=== PATIENT | female | born 1975 | race Two or more races ===

== ENCOUNTER 2020-06-28 15:20 | Outpatient (REF) | payer MEDICAID, SELFPAY ==
--- NOTE | ~2020-06-28 | US_ITS ---
EXAMINATION: US PELVIS ULTRASOUND CLINICAL INFORMATION: Excessive and frequent menses. Age 45. LMP 05/30/2020. COMPARISON: None TECHNIQUE: Ultrasound of the pelvis is performed using both transabdominal and transvaginal transducers along with Doppler. Transvaginal imaging is performed due to inadequate visualization transabdominally. FINDINGS: Uterus: The uterus is anteverted and retroflexed and measures 8.9 x 4.3 x 6.8 cm. Volume 136 mL. The double wall endometrial thickness is borderline thickened at 16 mm. The endometrium appears homogeneous. There is no visible mass. No abnormal color flow. The uterus is smooth in contour and has normal myometrial echogenicity. No visible fibroid. There is a 6 mm nabothian cyst in the cervix. Adnexa: Both ovaries are visualized. There is normal color flow to the adnexa. There is no ovarian torsion. There is no pelvic ascites or fluid collection. Right ovary measures 3.9 x 1.7 x 2.2 cm. Volume 7.3 mL. Left ovary measures 4.3 x 1.5 x 2.2 cm. Volume 7.4 mL. US/US pelvic complete IMPRESSION: 1. Endometrial double wall thickness 1.6 cm. 2. No visible fibroid. No adnexal mass or ascites.
--- NOTE | ~2020-06-28 | US_ITS ---
EXAMINATION: US PELVIS ULTRASOUND CLINICAL INFORMATION: Excessive and frequent menses. Age 45. LMP 05/30/2020. COMPARISON: None TECHNIQUE: Ultrasound of the pelvis is performed using both transabdominal and transvaginal transducers along with Doppler. Transvaginal imaging is performed due to inadequate visualization transabdominally. FINDINGS: Uterus: The uterus is anteverted and retroflexed and measures 8.9 x 4.3 x 6.8 cm. Volume 136 mL. The double wall endometrial thickness is borderline thickened at 16 mm. The endometrium appears homogeneous. There is no visible mass. No abnormal color flow. The uterus is smooth in contour and has normal myometrial echogenicity. No visible fibroid. There is a 6 mm nabothian cyst in the cervix. Adnexa: Both ovaries are visualized. There is normal color flow to the adnexa. There is no ovarian torsion. There is no pelvic ascites or fluid collection. Right ovary measures 3.9 x 1.7 x 2.2 cm. Volume 7.3 mL. Left ovary measures 4.3 x 1.5 x 2.2 cm. Volume 7.4 mL. US/US transvaginal IMPRESSION: 1. Endometrial double wall thickness 1.6 cm. 2. No visible fibroid. No adnexal mass or ascites.
== END 2020-06-28 15:21 | disposition home or self-care (01) ==
LOC: HO.US 15:20
PROVIDERS: PCP Internal Medicine; Visit Provider Advanced Practice Midwife
DX: N92.0 Excessive and frequent menstruation with regular cycle (principal)
CPT/HCPCS: 76830; 76856

== ENCOUNTER 2020-07-05 13:01 | Outpatient (REF) | payer MEDICAID, SELFPAY ==
[2020-07-06 10:18] LABS: BV Int Neg Control Negative (Negative); BV Int Pos Control Positive (Positive)
[2020-07-06 15:36] LABS: C. trachomatis RNA TMA NOT DETECTED (NOT DETECTED); N. gonorrhoeae RNA TMA NOT DETECTED (NOT DETECTED)
== END 2020-07-05 13:02 | disposition home or self-care (01) ==
LOC: HO.LAB 13:01
PROVIDERS: PCP Internal Medicine; Visit Provider Obstetrics & Gynecology
DX: B37.3 Candidiasis of vulva and vagina (principal)
CPT/HCPCS: 36415; 87480; 87491; 87510; 87591; 87660; 99212

== ENCOUNTER 2021-10-02 10:17 | Outpatient (REF) | payer MEDICAID, SELFPAY ==
[2021-10-02 12:39] LABS: Alanine Aminotransferase 14 U/L (0-31); Albumin Level 4.2 g/dL (3.5-5.0); Alkaline Phosphatase 66 U/L (39-117); Aspartate Amino Transferase 14 U/L (5-31); Bilirubin Direct < 0.2 mg/dL (0.0-0.5); Bilirubin Total 0.4 mg/dL (0.0-1.0); Total Protein 7.5 g/dL (6.5-8.0)
[2021-10-02 13:02] LABS: TSH reflex Free T4 0.94 uIU/mL (0.32-4.0)
[2021-10-02 13:30] LABS: Folate 11.3 ng/mL (> or = 4.0); Vitamin B12 284 pg/mL (200-900)
[2021-10-03 21:21] LABS: Transglutaminase Ab IgG <1.0 U/mL; Transglutaminase IgA <1.0 U/mL
[2021-10-06 12:41] LABS: Vitamin D 25-OH, D2 10 ng/mL; Vitamin D 25-OH, D3 20 ng/mL; Vitamin D 25-OH, Total 30 ng/mL (30-100)
== END 2021-10-02 10:18 | disposition home or self-care (01) ==
LOC: HO.LAB 10:17
PROVIDERS: PCP Internal Medicine; Referring Provider Internal Medicine; Visit Provider Nurse Practitioner Family
DX: R10.9 Unspecified abdominal pain (principal); R19.7 Diarrhea, unspecified; K21.9 Gastro-esophageal reflux disease without esophagitis; K59.04 Chronic idiopathic constipation; R14.0 Abdominal distension (gaseous); E55.9 Vitamin D deficiency, unspecified
CPT/HCPCS: 36415; 80076; 82306; 82607; 82746; 84443; 86364; 99202; 99212

== ENCOUNTER 2021-11-19 11:27 | Outpatient (REF) | payer MEDICAID, SELFPAY | END 2021-11-19 11:28 | disposition home or self-care (01) | LOC: HO.LNP 11:27 | PROVIDERS: Visit Provider Nurse Practitioner Family | DX: K21.9 Gastro-esophageal reflux disease without esophagitis (principal); Z20.822 Contact with and (suspected) exposure to COVID-19 | CPT/HCPCS: 87338 ==

== ENCOUNTER → 2021-11-20 11:31 | Outpatient (BNVA) | payer MEDICAID, SELFPAY | PROVIDERS: PCP Internal Medicine; Visit Provider Nurse Practitioner Family | DX: K59.01 Slow transit constipation (principal); K21.9 Gastro-esophageal reflux disease without esophagitis; R14.0 Abdominal distension (gaseous) | CPT/HCPCS: 99212 ==

== ENCOUNTER 2022-04-03 13:19 | Outpatient (REF) | payer MEDICAID, SELFPAY ==
--- NOTE | ~2022-04-03 | MM_ITS ---
EXAMINATION: MM SCREENING DIGITAL BREAST TOMOSYNTHESIS, BILATERAL CLINICAL INFORMATION: Screening. Asymptomatic. Age 47. Prior mammography at unknown location. Family history breast cancer, sister. The lifetime risk of breast cancer based on the Tyrer-Cuzick Model is 18%. COMPARISON: None (current study represents new baseline exam). TECHNIQUE: Digital breast tomosynthesis is performed in both the craniocaudal and mediolateral oblique views along with computer-aided detection (CAD). Synthesized 2D images are generated from the tomosynthesis. FINDINGS: There are scattered areas of fibroglandular density (ACR BI-RADS breast composition Category b). There is no architectural abnormality or abnormal calcifications. The bilateral axilla and skin contours are unremarkable. Right breast has small intramammary node posterior upper outer quadrant. Left breast has benign-appearing smooth bilobed nodule with partly obscured margins mid 3:00 position measuring approximately 1.3 x 0.5 x 0.7. As this represents new baseline exam, patient will be recalled for additional imaging to fully characterize. MM/MM tomosynthesis screening BI IMPRESSION: Left: -Smooth bilobed nodule mid 3:00 approximately 1.3 x 0.5 x 0.7 cm, possibly a cyst. Right: -No mammographic evidence of malignancy. ASSESSMENT: BI-RADS 0: Incomplete - Need Additional Imaging Evaluation RECOMMENDATION: 1. Targeted ultrasound left breast. 2. Radiology department staff will contact the patient for additional imaging. This patient's information was entered into a reminder system with a target due date for their next mammogram.
== END 2022-04-03 13:20 | disposition home or self-care (01) ==
LOC: HO.MAMMO 13:19
PROVIDERS: PCP Internal Medicine; Visit Provider Internal Medicine
DX: Z12.31 Encounter for screening mammogram for malignant neoplasm of breast (principal)
CPT/HCPCS: 77063; 77067

== ENCOUNTER 2022-04-10 13:43 | Outpatient (REF) | payer MEDICAID, SELFPAY ==
--- NOTE | ~2022-04-10 | US_ITS ---
EXAMINATION: US DIAGNOSTIC ULTRASOUND BREAST, LEFT CLINICAL INFORMATION: Recall from new baseline screening for lobulated nodule mid 3:00 position approximately 1.3 cm in greatest dimension, possibly a cyst. TC score 18%. Family history breast cancer, sister. COMPARISON: New baseline mammography 04/03/2022. TECHNIQUE: Ultrasound left breast is targeted to the outer breast using grayscale imaging and color Doppler without and with harmonics. FINDINGS: There is a grouping of simple cysts 3:30, 7 cm from nipple, with overall dimensions approximately 1.3 x 0.6 x 0.8 cm. There is increased through-transmission of sound. No associated color flow. No solid mass or architectural abnormality. Finding corresponds to the area for recall on recent new baseline screening. Results are discussed with the patient at time of visit, using an spanish medical interpreter. US/US breast LT limited IMPRESSION: -Grouped simple cysts mid outer left breast corresponding to recent mammography. ASSESSMENT: BI-RADS 2: Benign RECOMMENDATION: Routine annual mammography screening. This patient's information was entered into a reminder system with a target due date for their next mammogram.
== END 2022-04-10 13:44 | disposition home or self-care (01) ==
LOC: HO.MAMMO 13:43
PROVIDERS: PCP Internal Medicine; Visit Provider Internal Medicine
DX: N63.25 Unspecified lump in the left breast, overlapping quadrants (principal)
CPT/HCPCS: 76642

== ENCOUNTER 2022-12-09 10:50 | Outpatient (REF) | payer MEDICAID, SELFPAY ==
[2022-12-09 13:39] LABS: MANUAL DIFF FLAG NO
[2022-12-09 14:02] LABS: Basophils Percent Auto 0.6 % (0-2); Eosinophils Absolute Auto 0.1 X10*3/uL (0.0-0.4); Eosinophils Percent Auto 1.8 % (0-4); Hematocrit 36.6 % (37.0-47.0); Hemoglobin 11.1 g/dl (12.0-16.0); Lymphocytes Absolute Auto 1.3 X10*3/uL (1.2-4.9); Lymphocytes Percent Auto 26.4 % (20-40); Mean Corpuscular HGB Conc 30.3 g/dl (31.0-35.0); Mean Corpuscular Hemoglobin 24.7 pg (27.0-33.0); Mean Corpuscular Volume 81.5 fL (80.0-98.0); Mean Platelet Volume 12.6 fL (9.4-12.3); Monocytes Absolute Auto 0.4 X10*3/uL (0.1-1.2); Monocytes Percent Auto 7.4 % (2-11); Neutrophils Absolute Auto 3.2 x10*3/uL (2.0-8.3); Neutrophils Percent Auto 63.8 % (45-73); Platelet Count 310 X10*3/uL (160-400); Red Blood Count 4.49 X10*6/uL (4.20-5.50); Red Cell Distribution Width 15.7 % (11.0-16.0)
[2022-12-09 15:16] LABS: Alanine Aminotransferase 18 U/L (0-31); Albumin Level 4.4 g/dL (3.5-5.0); Alkaline Phosphatase 62 U/L (39-117); Anion Gap 11 (12-20); Aspartate Amino Transferase 19 U/L (5-31); Bilirubin Direct 0.2 mg/dL (0.0-0.5); Bilirubin Total 0.4 mg/dL (0.0-1.0); Blood Urea Nitrogen 11 mg/dL (9-16); Calcium 9.7 mg/dL (8.4-10.2); Carbon Dioxide 27 mmol/L (22-29); Chloride 104 mmol/L (96-108); Cholesterol 154 mg/dL; Estimated Glomerular Filt Rate > 60; Glucose Random 85 mg/dL (60-115); HDL Cholesterol 40 mg/dL; LDL Cholesterol Calculated 94 mg/dl; Potassium 4.1 mmol/L (3.3-5.1); Sodium 138 mmol/L (135-145); Triglycerides 100 mg/dL; Vitamin D 25-OH Total 33.1 ng/mL (>30)
== END 2022-12-09 10:51 | disposition home or self-care (01) ==
LOC: HO.HHCL 10:50
PROVIDERS: Visit Provider Internal Medicine
DX: M79.7 Fibromyalgia (principal)
CPT/HCPCS: 36415; 80048; 80061; 80076; 82306; 85025

== ENCOUNTER → 2023-07-22 13:00 | Outpatient (BNV) | payer MEDICAID, SELFPAY | PROVIDERS: PCP Internal Medicine; Visit Provider Radiology Diagnostic Radiology | DX: Z12.31 Encounter for screening mammogram for malignant neoplasm of breast (principal) | CPT/HCPCS: 77063; 77067 ==

== ENCOUNTER 2023-07-22 13:01 | Outpatient (REF) | payer MEDICAID, SELFPAY ==
--- NOTE | ~2023-07-22 | MM_ITS ---
EXAMINATION: MM SCREENING DIGITAL BREAST TOMOSYNTHESIS, BILATERAL CLINICAL INFORMATION: Screening. Asymptomatic. COMPARISON: Mammography: This study is compared with prior exams dating back to 2021. TECHNIQUE: Digital breast tomosynthesis is performed in both the craniocaudal and mediolateral oblique views along with computer-aided detection (CAD). Synthesized 2D images are generated from the tomosynthesis. FINDINGS: The breasts are heterogeneously dense, which may obscure small masses (ACR BI-RADS breast composition Category c). There are no significant masses, abnormal calcifications, or other abnormalities. MM/MM tomosynthesis screening BI IMPRESSION: No mammographic evidence of malignancy. ASSESSMENT: BI-RADS BI-RADS 1 - Negative RECOMMENDATION: Routine annual mammography screening. 1 year F/U This examination should not preclude the clinical evaluation of a suspicious palpable abnormality. This patient's information was entered into a reminder system with a target due date for their next mammogram.
== END 2023-07-22 13:02 | disposition home or self-care (01) ==
LOC: HO.MAMMO 13:01
PROVIDERS: PCP Internal Medicine; Visit Provider Internal Medicine
DX: Z12.31 Encounter for screening mammogram for malignant neoplasm of breast (principal)
CPT/HCPCS: 77063; 77067

== ENCOUNTER 2023-09-09 11:58 | Outpatient (REF) | payer MEDICAID, SELFPAY ==
[2023-09-09 13:27] LABS: MANUAL DIFF FLAG NO
[2023-09-09 13:40] LABS: Basophils Absolute Auto 0.1 X10*3/uL (0.0-0.2); Basophils Percent Auto 0.9 % (0-2); Eosinophils Absolute Auto 0.1 X10*3/uL (0.0-0.4); Eosinophils Percent Auto 1.3 % (0-4); Hemoglobin 11.1 g/dl (12.0-16.0); Imm Gran Abs Auto 0.02 X10*3/uL (0.00-0.03); Imm Gran Pct Auto 0.4 % (0.0-0.4); Lymphocytes Absolute Auto 1.5 X10*3/uL (1.2-4.9); Lymphocytes Percent Auto 27.9 % (20-40); Mean Corpuscular HGB Conc 31.7 g/dl (31.0-35.0); Mean Corpuscular Hemoglobin 25.8 pg (27.0-33.0); Mean Corpuscular Volume 81.4 fL (80.0-98.0); Mean Platelet Volume 11.6 fL (9.4-12.3); Monocytes Absolute Auto 0.4 X10*3/uL (0.1-1.2); Neutrophils Absolute Auto 3.4 x10*3/uL (2.0-8.3); Neutrophils Percent Auto 62.5 % (45-73); Platelet Count 272 X10*3/uL (160-400); White Blood Count 5.4 X10*3/uL (4.8-10.8)
[2023-09-09 13:45] LABS: Estimated Average Glucose 103 mg/dL; Hemoglobin A1c % 5.2 % (<6.0)
[2023-09-09 14:03] LABS: TSH reflex Free T4 1.32 uIU/mL (0.32-4.0)
== END 2023-09-09 11:59 | disposition home or self-care (01) ==
LOC: HO.HHCL 11:58
PROVIDERS: Visit Provider Internal Medicine
DX: R53.82 Chronic fatigue, unspecified (principal)
CPT/HCPCS: 36415; 83036; 84443; 85025

== ENCOUNTER 2024-07-29 11:00 | Outpatient (REF) | payer OTHER, SELFPAY ==
--- OUTSIDE RECORDS SUMMARY | 2024-07-29 14:34 | XMS_ITS | Clinical Summary ---
Author Organization [facility], Address [address] [place] [address] [place] [address] Phone Care Team Providers Care Sash Clamp Operator Name Role Phone Iraida Clinton MD Primary Care Provider [phone] Allergies No known active allergies Medications norethindrone (AYGESTIN) 5 MG tablet Take 1 tablet by mouth 1 (one) time each day Active raNITIdine (ZANTAC) 300 MG tablet Take 1 tablet by mouth 1 (one) time each day Active Active Problems Problem Noted Date Diagnosed Date Recurrent urinary tract infection 05/04/2019 Dysuria 05/04/2019 Blood in urine 05/04/2019 Proteinuria 05/04/2019 Flank pain 05/04/2019 Family History Medical History Relation Comments Hypertension Father Cancer Mother grandmother and grandfather colon Diabetes Mother Heart disease Mother CO Hypertension Mother Hypertension Sibling brother Relation Status Comments Father Mother Sibling Social History Tobacco Use Types Packs/Day Years Used Date Smoking Tobacco: Never Comments Unknown Sex and Gender Information Value Date Recorded Sex Assigned at Not on file Legal Sex Female 4:33 PM EST Gender Identity Not on file Sexual Orientation Not on file Last Filed Vital Signs Vital Sign Reading Time Taken Comments Blood Pressure 102/66 01/29/2019 12:00 PM EDT Pulse - - Temperature - - Respiratory Rate - - Oxygen Saturation - - Inhaled Oxygen Concentration - - Weight - - Height - - Body Mass Index - - Plan of Treatment Health Maintenance Due Date Last Done Comments Hepatitis B Vaccine (1 of 3 - 19+ 3-dose series) 1996 Influenza Vaccine (#1) 2024 Pneumococcal Vaccine: Pediat rics (0 to 5 Years) and At-Risk Patients (6 to 64 Years) Aged Out No longer eligi ble based on patient's age to complete this topic [place] [address] [address] [place] [address] [facility] Care Teams Sash Clamp Operator Relationship Specialty Start Date End Date Iraida Clinton MD [address] [place] [address] PCP - General 03/09/19
--- OUTSIDE RECORDS SUMMARY | 2024-07-29 14:34 | XMS_ITS ---
Author Organization [facility] [employer] [facility] Address [address] [place] [phone] Care Team Providers Care Asphalt Screed Operator Name Role Phone Shagufta Salinas Primary Care Provider REASON FOR VISIT Lab results Medications Medication SIG (Take, Route, Frequency, Duration) Notes Start Date End Date Status Ferrous Sulfate 325 (65 Fe) MG 1 tablet Orally Three times a Week for 30 days 06/01/2024 Active Social History Sex Assigned At : Social History Observation Description Sex Assigned At Female Encounters Encounter Location Date Provider Diagnosis [address] [address] 06/01/2024 Shagufta Salinas Plan Of Treatment Medication Medication Name Sig Start Date Stop Date Notes Ferrous Sulfate 325 (65 Fe) MG 1 tablet Orally Three times a Week for 30 days 06/01/2024 Progress Notes * Dayana STEWARTDOB:1975 (49 yo F)Acc No.[id number]:06/01/2024 Patient:?Dayana STEWART :1975???Age:49 Y???Sex:Female Address:[place] [address] * Refills? Start Ferrous Sulfate Tablet Delayed Release, 325 (65 Fe) MG, Orally, 12, 1 tablet, Three times a Week, 30 days, Refills=5 * true * Date:? Generated for Doreen vera/Deric/eTransmitting on:?07/29/2024 02:33 PM EDT
--- OUTSIDE RECORDS SUMMARY | 2024-07-29 14:34 | XMS_ITS | Patient Health Record ---
Author Organization [facility] [employer] [facility] Address [address] [place] [address] Care Team Providers Care Audio Video Technician Name Role Phone Shagufta Salinas Primary Care Provider [phone] Scott Bell Unavailable [phone] Allergies No Known Allergies Results Component Value Reference Range Notes Iron Deficiency Profile 5616 Reviewed date:06/01/2024 08:26:40 AM Interpretation:Low Performing Lab:[facility], , [address] [place] [address], [phone] Kam Bajwa M.D. Notes/Report: Received Date: 0; 0 FASTING:YES FASTING: YES IRON, TOTAL 54 40-190 mcg/dL IRON BINDING CAPACITY 491 250-450 mcg/dL (john c) % SATURATION 11 16-45 % (calc) FERRITIN 4 16-232 ng/mL Vitamin B12 & Folate 7065 Reviewed date:06/01/2024 08:26:40 AM Interpretation:Normal Performing Lab:[facility], , [address] [place], [address] Kam Bajwa M.D. Notes/Report: Received Date: 0; 0 FASTING:YES FASTING: YES VITAMIN B12 352 222-7543 pg/mL FOLATE, SERUM 23.2 Reference Range Low: <3.4 Borderline: 3.4-5.4 Normal: >5.4 CBC (H/H,RBC,Indices,WBC,Plt ) 1759 Reviewed date:05/04/2024 10:19:35 AM Interpretation:H/H low Performing Lab:[facility], , [address] [place], [phone] Kam Bajwa M.D. Notes/Report: Received Date: [id number] 0; 0; 0 FASTING:YES FASTING: YES WHITE BLOOD CELL COUNT 6.8 3.8-10.8 Thousand/ uL RED BLOOD CELL COUNT 4.26 3.80-5.10 Million/uL HEMOGLOBIN 10.8 11.7-15.5 g/dL HEMATOCRIT 34.4 35.0-45.0 % MCV 80.8 80.0-100.0 fL MCH 25.4 27.0-33.0 pg MCHC 31.4 32.0-36.0 g/dL For adults, a slight decrease in the calculated MCHC value (in the range of 30 to 32 g/dL) is most likely not clinically significant; however, it should be interpreted with caution in correlation with other red cell parameters and the patient's clinical condition. RDW 15.5 11.0-15.0 % PLATELET COUNT 296 140-400 Thousand/uL MPV 11.6 7.5-12.5 fL Lyme Disease Ab w/ rfl IgG,I gM 6646 Reviewed date:05/04/2024 10:19:17 AM Interpretation:Normal Performing Lab:[facility], , [address] [place] [address], [phone] Kam Bajwa M.D. Notes/Report: Received Date: 0; 0; 0 FASTING:YES FASTING: YES LYME AB SCREEN <0.90 Index Interpretation ----- < 0.90 Negative 0.90-1.09 Equivocal > 1.09 Positive As recommended by the Food and Drug Administration (FDA), all samples with positive or equivocal results in a Borrelia burgdorferi antibody screen will be tested using a blot method. Positive or equivocal screening test results should not be interpreted as truly positive until verified as such using a supplemental assay (e.g., B. burgdorferi blot). The screening test and/or blot for B. burgdorferi antibodies may be falsely negative in early stages of Lyme disease, including the period when erythema migrans is apparent. NAKUL Screen,IFA,Reflex Titer/ Pattern,Reflex Mplx 11 Ab [place] with IdentRA [id number] Reviewed date:05/04/2024 10:19:25 AM Interpretation:Negative Performing Lab:[facility], , [address], [place], [address] Nicky Parmar MD,PhD,JIGNA~[facility]1, [facility], Director - [address] [place] [address] [employer] [facility] Notes/Report: Received Date: Anti-mutated citrullinated vimentin antibody may be used as 0; 0; 0 a second-line marker of rheumatoid arthritis, in addition to FASTING:YES rheumatoid factor and anti-cyclic citrullinated peptide (CCP). FASTING: YES NAKUL SCREEN, IFA NEGATIVE NEGATIVE NAKUL IFA is a first line screen for detecting the presence of up to approximately 150 autoantibodies in various autoimmune diseases. A negative NAKUL IFA result suggests an NAKUL-associated autoimmune disease is not present at this time, and does not reflex further. If there is high clinical suspicion for Sjogren's syndrome, testing for anti-SS-A/Ro antibody should be considered. Anti-Kim-1 antibody should be considered for clinically suspected inflammatory myopathies. AC-0: Negative International Consensus on NAKUL Patterns (https://doi.org/10.1515/cc ig-1251-9817) For additional information, please refer to http://education.[employer]/faq/GOR134 (This link is being provided for informational/ educational purposes only.) RHEUMATOID FACTOR <10 <14 IU/mL CYCLIC CITRULLINATED PEPTIDE (CCP) AB (IGG) <16 Reference Range Negative: <20 Weak Positive: 20-39 Moderate Positive: 40-59 Strong Positive: >59 MUTATED CITRULLINATED VIMENTIN (MCV) AB <20 <20 U/mL Reason For Referral No Information Medications Medication SIG (Take, Route, Frequency, Duration) Notes Start Date End Date Status Ketoconazole 2 % as directed External ly daily for 30 days Active Ferrous Sulfate 325 (65 Fe) MG 1 tablet Orally Three times a Week for 30 days 06/01/2024 Active Ventolin HFA 108 (90 Base) MCG/ACT 1 puff as needed Inhalation every 4 hrs for 30 days Active Pantoprazole Sodium 40 MG 1 tablet Orall y Once a day for 90 days Active Gabapentin 600 MG 1 tablet Orally thre e times a day for 30 days Active Imitrex 50 MG 1 tablet at least 2 hours between doses as needed Orally Twice a day for 30 days Active Social History Tobacco Use: Social History Observation Description Date Details (start date - stop date) Never Smoker NA - NA Sex Assigned At : Social History Observation Description Sex Assigned At Female Tobacco Control (Standard) Question Answer Notes Tobacco use: Nonsmoker Problems Problem Type SNOMED Code ICD Code Onset Dates Problem Status W/U Status Risk Notes Problem Fibromyalgia (603045890) Fibromyalgia (M79.7) Active confirmed Problem Gastroesophageal reflux disease (411049949) GERD (gastroesophagea l reflux disease) (K21.9) Active confirmed Problem Migraine (36782912) Migraine (G43.909) Active confirmed Problem Arthralgia (77785999) Arthralgia (M25.50) Active confirmed Problem 216252290 Anemia, unspecified type (D64.9) Active confirmed Problem Mild intermittent asthma (250027085) Asthma in adult, mild intermittent, uncomplicated (J45.20) Active confirmed Vital Signs Temperature 97.2 degrees Fahrenheit 05/04/2024 Respiratory Rate 18 /min 05/04/2024 Oximetry 98 % 05/04/2024 Blood pressure diastolic 71 mm Hg 05/04/2024 Height 64 in 05/04/2024 Blood pressure systolic 118 mm Hg 05/04/2024 Weight 167 lbs 05/04/2024 BMI 28.66 kg/m2 05/04/2024 Encounters Encounter Location [place] [address] 03/25/2024 Scott Bell [address] [address] 04/05/2024 Shagufta Salinas Screening for malignant neoplasm Z12.[address] [address] 06/01/2024 [place] [address] 05/04/2024 Shagufta Salinas Encounter to discuss test results Z71.2 and Anemia, unspecified type D64.9 [place] [address] 03/25/2024 Scott Bell Fibromyalgia M79.7 ; Arthralgia M25.50 ; Asthma in adult, mild intermittent, uncomplicated J45.20 ; Migraine G43.909 ; GERD (gastroesophageal reflux disease) K21.9 and Encounter for behavioral health screening Z13.30 Assessments Encounter Date Diagnosis (ICD Code) Assessment Notes Treatment Notes Treatment Clinical Notes Section Notes 03/25/2024 Fibromyalgia (ICD-10 - M79.7) 04/05/2024 Screening for malignant neoplasm (ICD-10 - Z12.9) 05/04/2024 Anemia, unspecified type (ICD-10 - D64.9) Patient reports chronically low blood counts but never told why Labs ordered to assess - will call with results 05/04/2024 Encounter to discuss test results (ICD-10 - Z71.2) Lyme panel normal Rheumatoid panel normal CBC revealed low H/H - working up anemia 03/25/2024 Arthralgia (ICD-10 - M25.50) 03/25/2024 Migraine (ICD-10 - G43.909) 03/25/2024 Asthma in adult, mild intermittent, uncomplicated (ICD-10 - J45.20) 03/25/2024 GERD (gastroesophageal reflux disease) (ICD-10 - K21.9) 03/25/2024 Encounter for behavioral health screening (ICD-10 - Z13.30) 03/25/2024 Other Body Mass Index : Care Instructions material was printed Plan Of Treatment Pending Test Test Name Order Date Colonoscopy: Referral 04/05/2024 Insurance Providers Payer Name Payer Address Payer Phone Subscriber Number Group Number Insured Name Patient Relationship to Insured Coverage Start Date Coverage End Date Medicaid Susy Narvaez [place] [place] [address] [phone] [id number] Dayana Rader Self - patient is the insured
--- OUTSIDE RECORDS SUMMARY | 2024-07-29 14:34 | XMS_ITS ---
Author Name [facility] Organization Unknown History of Medication Use Medication Directions Dispensed Refills Start Date End Date Stat us PANTOprazole (PROTONIX) 40 MG EC tablet Take 1 tablet (40 mg total) by mouth. active albuterol (PROVENTIL HFA; VENTOLIN HFA) 108 (90 Base) MCG/ACT inhaler Inhale 2 puffs 4 times daily (every 6 hours) as needed. 09/09/2023 active gabapentin (NEURONTIN) 600 MG tablet TAKE 1 TABLET BY MOUTH THREE TIMES DAILY FOR 30 DAYS active ketoconazole (NIZORAL) 2 % shampoo DIRECTED EXTERNALLY DAILY FOR 30 DAYS active polyethylene glycol (GoLYTELY) 236 g solution Take as directed for Colonoscopy/GI Procedure. See administration instructions. 05/11/2024 active Problems Problem Status Onset Date Problem Type Date of Resoluti on Source Anemia, unspecified type active EncounterDiagnosisAct [facility] Rectal bleeding active EncounterDiagnosisAct [facility] Change in bowel habits active EncounterDiagnosisAct [facility] Encounters Encounter Type Encounter Reason Primary Diagnosis Location Date Ambulatory Encounter for screening for malignant neoplasm of colon Encounter for screening for malignant neoplasm of colon [place] [employer] [facility] 05/11/2024 Care Team Organization Name Specialty Phone Email Start Date End Da te [place] [employer] [facility] PCP Card Scraper 05/22/2024 07/21/2024 [facility] SHAGUFTA GEORGES Primary Care 05/11/2024 [facility] 05/05/2024 [facility] Shagufta ARTIS Primary Care 04/05/2024 [facility] NO PCP Primary Care [facility]
--- OUTSIDE RECORDS SUMMARY | 2024-07-29 14:34 | XMS_ITS | Clinical Summary ---
Author Organization [employer] Address [address] [place] [address] Care Team Providers Care Windows Server Specialist Name Role Phone Nanette Hammer MD Primary Care Provide r Allergies No known active allergies Medications * This document contains information received from the source organization and may not represent a complete record from that organization. simethicone (Mylicon,Gas-X) 180 MG capsule take with meals as needed 04/11/20 21 Active Senna-Time 8.6 MG tablet TAKE 1 TABLET BY MOUTH AT BEDTIME FOR CONSTIPATION 01/20/20 22 Active naproxen (Naprosyn) 500 MG tablet TAKE 1 TABLET BY MOUTH ONCE DAILY NEEDED 10/14/19 22 Active methylPREDNISolon e (Medrol Dospak) 4 MG tablets TAKE BY MOUTH DIRECTED ON INSIDE OF PACKAGE 05/18/19 23 Active fluticasone (Flonase Allergy Relief) 50 MCG/ACT nasal spray Administer 2 sprays into affected nostril(s) at bed time. 01/13/20 21 Active finasteride (Proscar) 5 MG tablet TAKE 1/2 (ONE-HALF) TABLET BY MOUTH ONCE DAILY 05/18/19 23 Active DULoxetine (Cymbalta) [address] capsule Take 20 mg by mouth at bedtime. 05/15/19 23 Active docusate sodium (Colace) 100 MG capsule Take 100 mg by mouth at bedtime. 01/20/20 22 Active Diclofenac Sodium 1 % gelIndications:La teral epicondylitis of left elbow APPLY ONE APPLICATION ON THE SKIN ONCE DAILY NEEDED DIRECTED 100 g 3 06/07/19 23 Active fluconazole (Diflucan) 150 MG tabletIndications :Recurrent candidiasis of vagina Take 1 tab every 3 days x 3 doses 3 tablet 07/05/19 23 Active minoxidil (Rogaine) 2 % external solutionIndicatio ns:Loss of hair Apply topically every 12 (twelve) hours. 300 mL 1 09/11/19 23 Active fexofenadine (Francisca) 180 MG tabletIndications :Seasonal allergies TAKE 1 TABLET BY MOUTH IN THE MORNING 90 tablet 1 09/12/19 23 Active gabapentin (Neurontin) 600 MG tabletIndications :Fibromyalgia Take 1 tablet (600 mg) by mouth 2 times daily. 60 tablet 2 06/24/19 24 Active baclofen (Lioresal) 5 MG tablet Take 1 tablet (5 mg) by mouth if needed in the morning, at noon, and at bedtime (if needed). 90 tablet 2 07/22/19 24 Active pantoprazole (ProtoNix) 40 MG EC tabletIndications :Gastroesophageal reflux disease without esophagitis TAKE 1 TABLET BY MOUTH TWICE DAILY. DO NOT CRUSH, CHEW, OR SPLIT 180 tablet 09/09/19 24 Active ketoconazole (Nizoral) 2 % shampooIndication s:Loss of hair Apply topically 2 (two) times a week. 120 mL 1 09/11/19 24 Active cetirizine (ZyrTEC) 10 MG tabletIndications :Allergic cough,Allergic rhinitis, unspecified seasonality, unspecified trigger Take 1 tablet (10 mg) by mouth Once per day. 90 tablet 3 09/09/19 24 025 Active albuterol 108 (90 Base) MCG/ACT inhalerIndication s:Asthma, unspecified asthma severity, unspecified whether complicated, unspecified whether persistent Inhale 2 puffs every 6 (six) hours if needed for wheezing. 18 g 09/09/19 24 025 Active acetaminophen (Mapap Arthritis Pain) 650 MG ER tabletIndications :Fibromyalgia Take 2 tablets (1,300 mg) by mouth every 8 (eight) hours. 30 tablet 1 10/09/19 24 Active cyclobenzaprine (Flexeril) 5 MG tabletIndications :Fibromyalgia Take 1 tablet (5 mg) by mouth every 8 (eight) hours. 30 tablet 1 10/09/19 24 Active Active Problems Problem Noted Date Diagnosed Date Generalized abdominal pain 09/09/2023 Assessment & Plan (09/09/2023 12:22 PM EDT): I advise patient to avoid NSAIDs, spicy and acid food, I advise to eat at the same time every day, I advise to elevate the head of the bed and take medications as prescribe Pantoprazole refilled GI referral Encounter for screening mamm ogram for malignant neoplasm of breast 06/24/2023 Colon cancer screening 06/24/2023 Allergic rhinitis 03/26/2023 Allergic cough 03/26/2023 Asthma 03/26/2023 Recurrent acute tonsillitis 12/09/2022 Irregular periods/menstrual cycles 12/09/2022 Metrorrhagia 12/09/2022 Assessment & Plan (06/27/2023 5:38 PM EST): F/u with [facility] Chronic lower back pain 12/09/2022 Assessment & Plan (12/09/2022 10:52 AM EDT): Acetaminophen PRN Irritable bowel syndrome with constipation 12/09 Assessment & Plan (12/09/2022 10:51 AM EDT): It was advise to be mindful about her diet Drink plenty of water increase fiber on diet I will try bentyl to see if it helps Telogen effluvium 10/04/2022 Anxiety with depression 09/10/2022 Seasonal allergies 09/10/2022 Assessment & Plan (09/09/2023 12:23 PM EDT): New referral will be done on next appointment Assessment & Plan (09/10/2022 12:44 PM EDT): Dry cough and throat issues could be GERD vs allergies medications will be renewed next aptpointment in person for physical exam Seborrheic dermatitis 06/09/2022 Assessment & Plan (06/09/2022 7:09 AM EST): Requests refills or ketoconazole shampoo Lateral epicondylitis of left elbow 06/09/2022 Assessment & Plan (06/09/2022 7:09 AM EST): Pt will begin in three weeks Elbow strap Heat Diclofenac gel Fatigue 06/07/2022 Assessment & Plan (09/09/2023 12:23 PM EDT): RTC 4 weeks review of labs Fibromyalgia 06/07/2022 Assessment & Plan (10/09/2023 11:03 AM EDT): Patient was educated about multidisciplinary approach for her condition, it was advise cardiovascular exercise, maintain hydration, treat anxiety/depression and take medications as directed Assessment & Plan (09/09/2023 12:22 PM EDT): Patient was educated about multidisciplinary approach for her condition, it was advise cardiovascular exercise, maintain hydration, treat anxiety/depression and take medications as directed Assessment & Plan (06/27/2023 5:39 PM EST): Patient was educated about multidisciplinary approach for her condition, it was advise cardiovascular exercise, maintain hydration, treat anxiety/depression and take medications as directed Assessment & Plan (03/26/2023 12:46 PM EST): Patient was educated about multidisciplinary approach for her condition, it was advise cardiovascular exercise, maintain hydration, treat anxiety/depression and take medications as directed C/w duloxetin 20mg daily C/w gabapentin 600mg it was advise to take it every day as prescribed Assessment & Plan (12/09/2022 10:52 AM EDT): Patient was educated about multidisciplinary approach for her condition, it was advise cardiovascular exercise, maintain hydration, treat anxiety/depression and take medications as directed C/w duloxetin 20mg daily C/w gabapentin 600mg it was advise to take it every day as prescribed Assessment & Plan (09/10/2022 12:40 PM EDT): Patient was educated about multidisciplinary approach for her condition, it was advise cardiovascular exercise, maintain hydration, treat anxiety/depression and take medications as directed Assessment & Plan (06/09/2022 7:08 AM EST): On Cymbalta and Gabapentin Use muscle relaxer (Baclofen or Flexeril) during flare Stay as active as possible without increasing pain Gastroesophageal reflux disease 06/07/2022 Assessment & Plan (06/09/2022 7:08 AM EST): Uncontrolled with pantoprazole 40mg once a day, increase to twice a day Once symptoms are controlled, return to daily dosing Loss of hair 06/07/2022 Mood disorder 06/07/2022 Pruritus of vagina 06/07/2022 Recurrent urinary tract infection 05/04/2019 Proteinuria 05/04/2019 Flank pain 05/04/2019 Dysuria 05/04/2019 Blood in urine 05/04/2019 Immunizations Name Administration Dates Next Due Influenza, IIV3, injectable 02/01/2016, 3 Tdap 05/04/2013 Social History Tobacco Use Types Packs/Day Years Used Date Smoking Tobacco: Never Passive Smoke Exposure: Never Smokeless Tobacco: Never Tobacco Cessation:Counseling Given: Not Answered Alcohol Use Standard Drinks/Week Comments Never 0 (1 standard drink = 0.6 oz pur e alcohol) Depression Answer Date Recorded Patient Health Questionnaire-9 Score 0 06/24/2023 Patient Health Questionnaire-9 Score 0 06/24/2023 Last PHQ-9: Questionnaire Data Not on file 0 06/24/2023 Housing Stability Answer Date Recorded What is your housing situation today? I have chas colindres 06/24/[address] you li ve. Do you have problems with any of the following? None of the above 06/24/2023 Food Insecurity Answer Date Recorded Within the past 12 months, y ou worried that your food would run out before you got money to buy more: Never True 06/24/2023 Within the past 12 months,th e food you bought just didn't last and you didn't have enough money to get more: Never True Transportation Answer Date Recorded In the past 12 months, has l ack of transportation kept you from medical appts, meetings, work or from getting things needed for daily living? No 06/24/2023 Utilities Answer Date Recorded In the past 12 months, has t he electric, gas, oil or water company threatened to shut off services in your home? No 06/24/2023 Depression Answer Date Recorded Patient Health Questionnaire-2 Score 0 06/24/2023 Comments Unknown Sex and Gender Information Value Date Recorded Sex Assigned at Female 03/04/2022 10:36 AM EDT Legal Sex Female 10:36 AM EDT Gender Identity Female 03/04/2022 10:36 AM EDT Sexual Orientation Choose not to disclose 2021 10:36 AM EDT Last Filed Vital Signs Vital Sign Reading Time Taken Comments Blood Pressure 118/74 09/09/2023 11:09 AM EDT Pulse 82 09/09/2023 11:09 AM EDT Temperature 36.7 ??C (98 ??F) 09/09/2023 11:09 AM EDT Respiratory Rate 18 09/09/2023 11:09 AM EDT Oxygen Saturation 99% 09/09/2023 11:09 AM EDT Inhaled Oxygen Concentration - - Weight 71 kg (156 lb 9.6 oz) 09/09/2023 11:09 AM EDT Height 162.6 cm (5' 4 ) 09/09/2023 11:09 AM EDT Body Mass Index 26.88 09/09/2023 11:09 AM EDT Plan of Treatment Health Maintenance Due Date Last Done Comments CT Colonography 1977 Colonoscopy 1977 FIT 1977 FOBT 1977 Sigmoidoscopy 1977 Alcohol/Substance Use Screening 1989 Family Planning (PISQ) 1992 Hepatitis C Screening 1995 Hepatitis B Vaccines (1 of 3 - 19+ 3-dose series) 1996 Pneumococcal Vaccine: Pediatrics (0 to 5 Years) and At-Risk Patients (6 to 49) Years) (1 of 2 - PCV) 1996 Pap Smear 1998 Cervical Cancer Screening 2007 HPV/Cotest 2007 DTaP/Tdap/Td Vaccines (2 - Td or Tdap) 05/04/2023 05/04/2013 COVID-19 Vaccine (3 - season) 2024 09/18/2020, 08/28/2020 Influenza Vaccine (#1) 2024 02/01/2016, 2012 Depression Screening 06/24/2024 06/24/2023, 06/24/19 24 SDOH Screening 06/24/2024 06/24/2023 Mammogram 07/21/2024 07/22/2023, 1211/2021, 04/10/2022, Additional history exists Tobacco Screening 09/08/2024 09/09/2023 Colorectal Cancer Screening 07/23/2026 FIT DNA/Cologuard 07/23/2026 07/24/2023 Zoster Vaccines (1 of 2) 2027 RSV Patients and Patients Aged 60 years or older (1 - 1-dose 75+ series) 2052 HIV Screening Completed 06/21/2020 HIB Vaccines Aged Out No longer eligi ble based on patient's age to complete this topic HPV Vaccines Aged Out No longer eligi ble based on patient's age to complete this topic Hepatitis A Vaccines Aged Out No long er eligible based on patient's age to complete this topic IPV Vaccines Aged Out No longer eligi ble based on patient's age to complete this topic Meningococcal Vaccine Aged Out No julianna omer eligible based on patient's age to complete this topic RSV under 20 months Aged Out No longe r eligible based on patient's age to complete this topic Rotavirus Vaccines Aged Out No longer eligible based on patient's age to complete this topic Procedures Procedure Name Priority Date/Time Associated Diagnosis Comments LAB COLOGUARD?? COLON CANCER SCREEN Routine 07/24/2023 12:37 PM EDT Colon cancer screening BI MAMMOGRAM SCREENING TOMOSYNTHESIS BILATERAL Routine 07/22/2023 1:25 PM EDT HIV 1/2 ANTIGEN/ANTIBODY, FOURTH GENERATION W/RFL Routine 06/21/2020 3:10 PM EST from Last 3 Months or Most Recently Relevant to Health Maintenance Results * Cologuard?? colon cancer screening (07/24/2023 12:37 PM EDT) Cologuard Result Negative Negative 07/30/19 24 1:54 AM EDT [facility] (CLIA #:[id number]) Comment: NEGATIVE TEST RESULT. A negative Cologuard result indicates a low likelihood that a colorectal cancer (CRC) or advanced adenoma (adenomatous polyps with more advanced pre-malignant features) ??is present. The chance that a person with a negative Cologuard test has a colorectal cancer is less than 1 in 1500 (negative predictive value >99.9%) or has an ??advanced adenoma is less than ??5.3% (negative predictive value 94.7%). These data are based on a prospective cross-sectional study of 10,000 individuals at average risk for colorectal cancer who were screened with both Cologuard and colonoscopy. (Alethea Moreno al, N Engl J Med 2014;370(14):1286- 1297) The normal value (reference range) for this assay is negative. COLOGUARD RE-SCREENING RECOMMENDATION: Periodic colorectal cancer screening is an important part of preventive healthcare for asymptomatic individuals at average risk for colorectal cancer. ??Following a negative Cologuard result, the [employer] and U.S. Multi-Society Task Force screening guidelines recommend a Cologuard re-screening interval of 3 years. References: [place] [employer] Guideline for Colorectal Cancer Screening: https://www.cancer.org/cancer/zdzso-pudbfd-zkdqhr/diuctlvwo-tsybposwo-xyeilnf/ac s-rec ommendations.html.; Isaac DK, Oswald BEST, Pelon VossK, Colorectal Cancer Screening: Recommendations for Physicians and Patients from the U.S. Multi-Society Task Force on Colorectal Cancer Screening , Am J Gastroenterology 2017; 112:4542-8556. TEST DESCRIPTION: Composite algorithmic analysis of stool DNA-biomarkers with hemoglobin immunoassay. ?? Quantitative values of individual biomarkers are not reportable and are not associated with individual biomarker result reference ranges. Cologuard is intended for colorectal cancer screening of adults of either sex, 45 years or older, who are at average-risk for colorectal cancer (CRC). Cologuard has been approved for use by the U.S. FDA. The performance of Cologuard was established in a cross sectional study of average-risk adults aged 50-84. Cologuard performance in patients ages 45 to 49 years was estimated by sub-group analysis of near-age groups. Colonoscopies performed for a positive result may find as the most clinically significant lesion: colorectal cancer [4.0%], advanced adenoma (including sessile serrated polyps greater than or equal to 1cm diameter) [20%] or non- advanced adenoma [31%]; or no colorectal neoplasia [45%]. These estimates are derived from a prospective cross-sectional screening study of 10,000 individuals at average risk for colorectal cancer who were screened with both Cologuard and colonoscopy. (Alethea Johnston et al, N Engl J Med 2014;370(14):8707-9194.) Cologuard may produce a false negative or false positive result (no colorectal cancer or precancerous polyp present at colonoscopy follow up). A negative Cologuard test result does not guarantee the absence of CRC or advanced adenoma (pre-cancer). The current Cologuard screening interval is every 3 years. ([place] [employer] and U.S. Multi-Society Task Force). Cologuard performance data in a 10,000 patient pivotal study using colonoscopy as the reference method can be accessed at the following location: www.[employer]/results. Additional description of the Cologuard test process, warnings and precautions can be found at www.[employer]1og[employer]uckrd.com. Stool specimen (specimen) 07/24/2023 12:37 PM EDT 07/25/2023 10:58 AM EDT Nanette Alaniz MD LAB MOLECULAR DIAGNOS TICS ORDERABLES Final Result [facility] (CLIA #:[id number]) [place] [address], * BI Mammogram Screening Tomosynthesis Bilateral (07/22/2023 1:25 PM EDT) Anatomical Region Laterality Modality Breast Bilateral Mammography 07/22/2023 1:25 PM EDT Narrative 08/12/2023 10:03 AM EDT ? [facility] ? [address] ?[place] [address] ? Mammography Report ? Signed ? Patient: Dior Calle,Jadith ?MR#: [id number] ?? [id number] ? : 1975 ?Acct:[id number] ? Age/Sex: 48 / F ?ADM Date: 03/19/24 ? Loc: HO.MAMMO ? Attending Dr: Nanette Alaniz MD ? Ordering Physician: Nanette Hammer MD ?Results: ?? 1Negative ? Date of Service: 07/22/23 ?Follow Up: 1 Year From Orig ?? inal Mammogram ? Procedure(s): MM tomosynthesis screening BI ?? Accession Number(s): [id number] ? cc: Nanette Hammer MD ? EXAMINATION: ?? MM SCREENING DIGITAL BREAST TOMOSYNTHESIS, BILATERAL ? CLINICAL INFORMATION: ? Screening. Asymptomatic. ? COMPARISON: ?? Mammography: This study is compared with prior exams dating back to ?? 2021. ? TECHNIQUE: ?? Digital breast tomosynthesis is performed in both the craniocaudal and ?? mediolateral oblique views along with computer-aided detection (CAD). ?? Synthesized 2D images are generated from the tomosynthesis. ? FINDINGS: ?? The breasts are heterogeneously dense, which may obscure small masses ?? (ACR BI-RADS breast composition Category c). ? There are no significant masses, abnormal calcifications, or other ?? abnormalities. ? MM/MM tomosynthesis screening BI ?? IMPRESSION: ?? No mammographic evidence of malignancy. ? ASSESSMENT: ? BI-RADS BI-RADS 1 - Negative ? RECOMMENDATION: ?? Routine annual mammography screening. ? 1 year F/U ? This examination should not preclude the clinical evaluation of a ?? suspicious palpable abnormality. ? This patient's information was entered into a reminder system with a ?? target due date for their next mammogram. ? Dictated By: ?Alivia Perkins MD ? Signed By: ?<Electronically signed by Alivia Perkins MD in OV> ? 08/12/23958 ? DD/ 1325 ? TD/TT: ? Research Program Coordinator: ? Procedure Note Donotuseinterpreter, Image - 08/12/2023 [facility] [address] [place] [address] Mammography Report Signed Patient: Dayana GallagherMR#: [id number] : 1975Acct:[id number] Age/Sex: 48 / FADM Date: 07/22/23 Loc: HO.MAMMO Attending Dr: Nanette Alaniz MD Ordering Physician: Nanette Hammer MDResults: 1Negative Date of Service: 07/22/23Follow Up: 1 Year From Orig inal Mammogram Procedure(s): MM tomosynthesis screening BI Accession Number(s): [id number] cc: Nanette Hammer MD EXAMINATION: MM SCREENING DIGITAL BREAST TOMOSYNTHESIS, BILATERAL CLINICAL INFORMATION: Screening. Asymptomatic. COMPARISON: Mammography: This study is compared with prior exams dating back to 2021. TECHNIQUE: Digital breast tomosynthesis is performed in both the craniocaudal and mediolateral oblique views along with computer-aided detection (CAD). Synthesized 2D images are generated from the tomosynthesis. FINDINGS: The breasts are heterogeneously dense, which may obscure small masses (ACR BI-RADS breast composition Category c). There are no significant masses, abnormal calcifications, or other abnormalities. MM/MM tomosynthesis screening BI IMPRESSION: No mammographic evidence of malignancy. ASSESSMENT: BI-RADS BI-RADS 1 - Negative RECOMMENDATION: Routine annual mammography screening. 1 year F/U This examination should not preclude the clinical evaluation of a suspicious palpable abnormality. This patient's information was entered into a reminder system with a target due date for their next mammogram. Dictated By: Alivia Perkins MD Signed By: <Electronically signed by Alivia Perkins MD in OV> 08/12/23 0959 DD/ 1325 TD/TT: Research Program Coordinator: us Nanette Alaniz MD IMG BI PROCEDURES Fin al Result * HIV 1/2 ANTIGEN/ANTIBODY,FOURTH GENERATION W/RFL (06/21/2020 3:10 PM EST) HIV-1/2 ANTIGEN AND ANTIBODIES, 4TH GENERATION W/ REFLEX NON-REACT RAULITO NON-REACT RAULITO [facility] Comment: HIV-1 antigen and HIV-1/HIV-2 antibodies were not detected. There is no laboratory evidence of HIV infection. ?? PLEASE NOTE: This information has been disclosed to you from records whose confidentiality may be protected by state law. ??If your state requires such protection, then the state law prohibits you from making any further disclosure of the information without the specific written consent of the person to whom it pertains, or as otherwise permitted by law. A general authorization for the release of medical or other information is NOT sufficient for this purpose. ? For additional information please refer to http://education.[employer].Quartics/faq/WAW287 (This link is being provided for informational/ educational purposes only.) ? The performance of this assay has not been clinically validated in patients less than 2 years old. ?? 06/21/2020 3:10 PM EST us Georgina Randolph CNM LAB BLOOD ORDERABLES Matilda trujillo Result [facility] [address] from Last 3 Months or Most Recently Relevant to Health Maintenance Insurance [facility] C3 Care Teams Windows Server Specialist Relationship Specialty Start Date End Date Nanette Hammer MD [address] [place] [id number] PCP - General Family Medicine 07/16/19
--- OUTSIDE RECORDS SUMMARY | 2024-07-29 14:34 | XMS_ITS ---
Author Organization [facility] Address [address] [place] [phone] Care Team Providers Care Planner/Scheduler Name Role Phone Shagufta Salinas Primary Care Provider REASON FOR VISIT a.c. follow up, Cervical Cancer Screening, HCV Screening Needed, HIV Screen Needed, BMI, Needs Flu Vaccine , Covid Vaccine, ACT, HARK Social History Sex Assigned At : Social History Observation Description Sex Assigned At Female Encounters Encounter Location [place] [address] 04/13/2024 Shagufta Salinas Plan Of Treatment No Information Progress Notes * Dayana STEWARTDOB:1975 (49 yo F)Acc No.[id number]:04/13/2024 Progress Notes Patient:?Dayana STEWART Provider:?Shagufta Salinas PA-C :1975???Age:49 Y???Sex:Female D ate:04/13/2024 External Visit ID:[id number] Address:[address] [facility] Subjective: * Chief Complaints: * ???1. A.c. follow up. 2. Cer vical Cancer Screening. 3. HCV Screening Needed. 4. HIV Screen Needed. 5. BMI. 6. Needs Flu Vaccine . 7. Covid Vaccine. 8. ACT, HARK. * Medical History:? Objective: * Vitals:? * Physical Examination:? Assessment: Plan: * Treatment: Care Plan: * Problems:? * Billing Information: * Visit Code:? * Procedure Codes:? Care Plan Details* * Electronic signature of STEFF Guo on 07/29/2024 at 02:33 PM EDT Sign off status: Pending * Provider:?Shagufta Salinas PA-C Date:? Generated for Doreen vera/Deric/Jerald on:?07/29/2024 02:33 PM EDT
--- OUTSIDE RECORDS SUMMARY | 2024-07-29 14:34 | XMS_ITS ---
Author Organization [facility] [employer] Address [address] [place] [phone] Care Team Providers Care Wax Room Supervisor Name Role Phone Shagufta Salinas Primary Care Provider [phone] Allergies No Known Allergies Results Component Value Reference Range Notes Iron Deficiency Profile 5616 Reviewed date:06/01/2024 08:26:40 AM Interpretation:Low Performing Lab:[facility], , [address] [place], [address] Kam Bajwa M.D. Notes/Report: Received Date: 0; 0 FASTING:YES FASTING: YES IRON, TOTAL 54 40-190 mcg/dL IRON BINDING CAPACITY 491 250-450 mcg/dL (john c) % SATURATION 11 16-45 % (calc) FERRITIN 4 16-232 ng/mL Vitamin B12 & Folate 7065 Reviewed date:06/01/2024 08:26:40 AM Interpretation:Normal Performing Lab:[facility], , [address] [place], [address] Kam Bajwa M.D. Notes/Report: Received Date: 0; 0 FASTING:YES FASTING: YES VITAMIN B12 605 017-1589 pg/mL FOLATE, SERUM 23.2 Reference Range Low: <3.4 Borderline: 3.4-5.4 Normal: >5.4 REASON FOR VISIT a.c. follow up r/s appt mar, Cervical Cancer Screening, HCV Screening Needed, HIV Screen Needed, BMI, Needs Flu Vaccine 6280-2556 - declined, Covid Vaccine, ACT Medications Medication SIG (Take, Route, Frequency, Duration) Notes Start Date End Date Status Ventolin HFA 108 (90 Base) MCG/ACT 1 [...] Twice a day for 30 days Active Ketoconazole 2 % as directed External ly daily for 30 days Active Social History Tobacco Use: Social History Observation Description Date Details (start date - stop date) Never Smoker NA - NA Sex Assigned At : Social History Observation Description Sex Assigned At Female Tobacco Control (Standard) Question Answer Notes Tobacco use: Nonsmoker Problems Problem Type SNOMED Code ICD Code Onset Dates Problem Status W/U Status Risk Notes Problem [id number] Anemia, unspecified type (D64.9) Active confirmed Vital Signs Temperature 97.2 degrees Fahrenheit 05/04/20 Height 64 in 05/04/2024 Weight 167 lbs 05/04/2024 BMI 28.66 kg/m2 05/04/2024 Blood pressure systolic 118 mm Hg 05/04/20 24 Blood pressure diastolic 71 mm Hg 024 Respiratory Rate 18 /min 05/04/2024 Oximetry 98 % 05/04/2024 Encounters Encounter Location Date Provider Diagnosis [address] [address] 05/04/2024 Shagufta Salinas Encounter to discuss test results Z71.2 and Anemia, unspecified type D64.9 Assessments Encounter Date Diagnosis (ICD Code) Assessment Notes Treatment Notes Treatment Clinical Notes Section Notes 05/04/2024 Encounter to discuss test results (ICD-10 - Z71.2) Lyme panel normal Rheumatoid panel normal CBC revealed low H/H - working up anemia 05/04/2024 Anemia, unspecified type (ICD-10 - D64.9) Patient reports chronically low blood counts but never told why Labs ordered to assess - will call with results Plan Of Treatment Treatment Notes Assessment Notes Encounter to discuss test results Lyme panel normal Rheumatoid panel normal CBC revealed low H/H - working up anemia Anemia, unspecified type Patient reports chronically low blood counts but never told why Labs ordered to assess - will call with results Next Appt Details Follow Up: 6 Weeks, Reason: anemia f/u Progress Notes * Venkata STEWART:1975 (49 yo F)Acc No.[id number]:05/04/2024 Progress Notes Patient:?Grayson STEWARTdith Provider:?Shagufta Salinas PA-C :1975???Age:49 Y???Sex:Female D ate:05/04/2024 External Visit ID:[id number] Address:[address] [place] [address], [id number] Subjective: * Chief Complaints: * ???A.c. follow up r/s appt m arCervical Cancer ScreeningHCV Screening NeededHIV Screen NeededBMINeeds Flu Vaccine [id number] - declinedCovid VaccineACT * HPI: ???HARK:?Within the last year:?Have you ever been humiliated or emotionally abused in other ways by your partner or ex-partner??No (0) ?Have you been afraid of your partner or ex-partner??No (0) ?Have you been raped or forced to have any kind of sexual activity by your partner or ex-partner??No (0) ?Have you been hit, kicked, slapped, or otherwise hurt by your partner or ex-partner??No (0) ?Total:?0 ???General:?49 year old female with PMH of fibromyalgia, GERD, migraines, and asthma presents to the clinic for follow up to discuss her recent lab results. She is taking all of her medication as directed. She has no other questions or concerns at this time. * ROS:?General ROS:?General?negative for:, fever, chills.?HEENT?negative for:, Headache, Ear pain, Sore throat, congestion.?Respiratory?negative for:, Cough, Sputum, breathing problems.?Cardiovascular?negative for:, Chest pain, Palpitations, Edema.?GI/?Negative for:, Abdominal pain, Nausea, Vomiting, Diarrhea, Constipation, Dysurea, Urinary frequency.?Musculoskeletal?negative for:, Joint pain, Joint swelling.?Psychiatric?Negative for:, Anxiety, Depressed mood, Sleep disturbance.?Neurology?negative for:, headache, weakness, paresthesias, dizziness.?Dermatology?negative for:, concerning moles, rash.? * Medical History:? * Surgical History:?Denies Pas t Surgical History * Hospitalization/Major Diagno stic Procedure:?Denies Past Hospitalization * Social History:?Language Spoken?Language Spoken?Czech ???Tobacco Control (Standard)?Tobacco use:?Nonsmoker * Medications:?TakingGabapenti n 600 MG Tablet 1 tablet Orally three times a day Pantoprazole Sodium 40 MG Tablet Delayed Release 1 tablet Orally Once a day Ventolin HFA 108 (90 Base) MCG/ACT Aerosol Solution 1 puff as needed Inhalation every 4 hrs Ketoconazole 2 % Shampoo as directed Externally daily Imitrex 50 MG Tablet 1 tablet at least 2 hours between doses as needed Orally Twice a day Medication List reviewed and reconciled with the patientTaking Gabapentin 600 MG Tablet 1 tablet Orally three times a day Taking Pantoprazole Sodium 40 MG Tablet Delayed Release 1 tablet Orally Once a day Taking Ventolin HFA 108 (90 Base) MCG/ACT Aerosol Solution 1 puff as needed Inhalation every 4 hrs Taking Ketoconazole 2 % Shampoo as directed Externally daily Taking Imitrex 50 MG Tablet 1 tablet at least 2 hours between doses as needed Orally Twice a day Medication List reviewed and reconciled with the patient * Allergies:?N.K.D.A.no[Allerg ies Verified] Objective: * Vitals:?MA/Nurse:[id number], Tem p:Temporal:97.2F, Ht:64in, Wt:167lbs, BMI:28.66Index, BP:Sitting Rt Arm:118/71mm Hg, HR:89, RR:18, O2 Sat:98, Pain Scale: 0, Smoking:never, ACT:23. * ???Past Orders: ???Lab:CBC (H/H,RBC,Indices, WBC,Plt) 0599 (Order Date - 03/25/2024) (Collection Date & Time - 04/30/2024 10:12 AM) ?Result: H/H low ? Value Reference Range ?WBC 6.8 3.8-10.8 - Thousand/uL ?RBC 4.26 3.80-5.10 - Million/uL ?Hemoglobin 10.8 L 11.7-15.5 - g/dL ?Hematocrit 34.4 L 35.0-45.0 - % ?MCV 80.8 80.0-100.0 - fL ?MCH 25.4 L 27.0-33.0 - pg ?MCHC 31.4 L 32.0-36.0 - g/d L ?RDW 15.5 H 11.0-15.0 - % ?MPV 11.6 7.5-12.5 - fL ?Platelet Count 296 140-4 00 - Thousand/uL ?Notes: Sa Brad [facility] 05/04/2024 10:19:34 AM > ???Lab:Lyme Disease Ab w/ rf l IgG,IgM 6646 (Order Date - 03/25/2024) (Collection Date & Time - 04/30/2024 10:12 AM) ?Result: Normal ? Value Reference Range ?Lyme Disease Screen <0.90 - index ?Notes: Sa Brad [facility] 05/04/2024 10:19:16 AM > ???Lab:NAKUL Screen,IFA,Reflex Titer/Pattern,Reflex Mplx 11 Ab Lucas with IdentRA [id number] (Order Date - 03/25/2024) (Collection Date & Time - 04/30/2024 10:12 AM) ?Result: Negative ? Value Reference Range ?NAKUL SCREEN, IFA NEGATIVE NEGA TIVE - ?CYCLIC CITRULLINATED PEPTIDE (CCP) AB (IGG) <16 - UNITS ?RHEUMATOID FACTOR <10 <1 4 - IU/mL ?Notes: Sa Brad ra 05/04/2024 10:19:24 AM > * Examination: ???General Examination: ?General Appearance:?alert, no acute distress.?Heart:?RRR, s1s2.?Lungs:?clear to auscultation, good air entry bilaterally.?Abdomen:?soft, non-distended, normoactive BS x4 quadrants, no guarding or rigidity, no masses palpated, no hepatosplenomegaly, no tenderness to palpation.?Neurologic Exam:?unremarkable.?Psych:?appropriate.? * Physical Examination:? Assessment: * Assessment: 1.?Anemia, unspecified type - D64.9 (Primary)???2.?Encounter to discuss test results - Z71.2??? Plan: * Treatment: 2.?Encounter to discuss test results? Notes: Lyme panel normal Rheumatoid panel normal CBC revealed low H/H - working up anemia ?? * Procedure Codes:? * Preventive Medicine:? ??Patient Counseling:?Nutrition and Physical Activity?Above Normal BMI Follow-up?Lifestyle education regarding diet,Giving encouragement to exercise * Follow Up:?6 Weeks (Reason: anemia f/u) Care Plan: * Problems:? * Billing Information: * Visit Code:? 35378 ESTABLISHED PATIENT, ASHWINI. * Procedure Codes:? Care Plan Details* * Sign off status: Completed true * Provider:?Shagufta Salinas PA-C Date:? Generated for Doreen vera/Deric/Darshanitting on:?07/29/2024 02:34 PM EDT History and Physical Notes * HPI (History of Present Illness) Category Sub-Category Detail Notes Category Not es General 49 year old fem hdruv with PMH of fibromyalgia, GERD, migraines, and asthma presents to the clinic for follow up to discuss her recent lab results. She is taking all of her medication as directed. She has no other questions or concerns at this time. HARK Within the last year: Have you e amrit been humiliated or emotionally abused in other ways by your partner or ex-partner?: No (0) Have you been afraid of your partner or ex-partner?: No (0) Have you been raped or force d to have any kind of sexual activity by your partner or ex-partner?: No (0) Have you been hit, kicked, s lapped, or otherwise hurt by your partner or ex-partner?: No (0) Total: : 0 Examination Category Sub-Category Detail Notes Category Not es General Examination Heart: RRR, s1s2 Lungs: clear to auscultatio n, good air entry bilaterally Abdomen: soft, non-distended, normoactive BS x4 quadrants, no guarding or rigidity, no masses palpated, no hepatosplenomegaly, no tenderness to palpation General Appearance: alert, no acute dist ress Neurologic Exam: unremarkable Psych: appropriate
--- OUTSIDE RECORDS SUMMARY | 2024-07-29 14:34 | XMS_ITS | Clinical Summary ---
Author Organization [facility] Address [address] [place] [address] Care Team Providers Care Flatwork Finisher Hand Name Role Phone Shagufta Salinas PA-C Primary Care Prov ider Allergies No known active allergies Medications Medication Sig Dispensed Refills Start Date End Date Status PANTOprazole (PROTONIX) 40 MG EC tablet Take 1 tablet (40 mg total) by mouth. Active gabapentin (NEURONTIN) 600 MG tablet TAKE 1 TABLET BY MOUTH THREE TIMES DAILY FOR 30 DAYS Active ketoconazole (NIZORAL) 2 % shampoo DIRECTED EXTERNALLY DAILY FOR 30 DAYS Active albuterol (PROVENTIL HFA; VENTOLIN HFA) 108 (90 Base) MCG/ACT inhaler Inhale 2 puffs 4 times daily (every 6 hours) as needed. 09/09/2023 Active baclofen (LIORESAL) 5 MG tablet Take 1 tablet (5 mg total) by mouth 3 (three) times a day as needed. 07/22/2023 Active cetirizine (ZyrTEC) 10 MG tablet Take 1 tablet (10 mg total) by mouth. 09/09/2023 Active cyclobenzaprine (FLEXERIL) 5 MG tablet Take 1 tablet (5 mg total) by mouth 3 times daily (every 8 hours). 10/09/2023 Active polyethylene glycol (miraLAx) 17 g packetIndications: Constipation, unspecified constipation type Take 1 packet (17 g total) by mouth daily. 30 packet 3 05/11/2024 5 Active polyethylene glycol (GoLYTELY) 236 g solutionIndication s:Screening for colon cancer Take as directed for Colonoscopy/GI Procedure. See administration instructions. 4000 mL 05/11/2024 Active Encounters Date Type Department Care Team Description 05/26/2024 Telephone [facility] [address] [place] [phone] Swapnil Botello MA Other 05/11/2024 2:40 PM EST Office Visit [facility] [place] [address] [facility] [address] [place] [address] Dora Oakes MD Emmett, Kara Ann, [facility] Screening for colon cancer (Primary Dx); Constipation, unspecified constipation type; Iron deficiency anemia, unspecified iron deficiency anemia type; LLQ pain 05/11/2024 Travel from Last 3 Months Family History Medical History Relation Name Comments Breast cancer Maternal Aunt Colon cancer Maternal Grandfather Breast cancer Sister Relation Name Status Comments Maternal Aunt Maternal Grandfather Sister Social History Tobacco Use Types Packs/Day Years Used Date Smoking Tobacco: Never Smokeless Tobacco: Never Tobacco Cessation:Counseling Given: Not Answered Alcohol Use Standard Drinks/Week Comments Never 0 (1 standard drink = 0.6 oz pur e alcohol) Sex and Gender Information Value Date Recorded Sex Assigned at Not on file Gender Identity Female 04/06/2024 3:37 PM EST Sexual Orientation Not on file Last Filed Vital Signs Vital Sign Reading Time Taken Comments Blood Pressure 121/80 05/11/2024 2:06 PM EST Pulse 84 05/11/2024 2:06 PM EST Temperature - - Respiratory Rate - - Oxygen Saturation 99% 05/11/2024 2:06 PM EST Inhaled Oxygen Concentration - - Weight 76.8 kg (169 lb 6.4 oz) 05/11/2024 2:06 P M EST Height 162.6 cm (5' 4 ) 05/11/2024 2:06 PM EST Body Mass Index 29.08 05/11/2024 2:06 PM EST Plan of Treatment Upcoming Encounters Date Type Department Care Team (Late st Contact Info) Description 08/25/2024 1:45 PM EDT Office Visit [facility] [address] [facility] [address] [place] [phone] Merary Espinoza PA-C [address] [place] [address] 09/13/2024 7:30 AM EDT Hospital Encounter [address] [place] [address] Dora Oakes MD [address] [place] [id number] 09/13/2024 7:30 AM EDT - 09/13/2024 7:50 AM EDT Surgery [address] [place] [phone] Dora Oakes MD [address] [place] [phone] COLONOSCOPY Scheduled Procedures Name Priority Associated Diagnoses Date/Ti me COLONOSCOPY Rectal bleeding Anemia, unspecified type Change in bowel habits 09/13/2024 7:30 AM EDT Health Maintenance Due Date Last Done Comments Hepatitis C Virus Screening 1975 DTaP/Tdap/Td Vaccines (1 - Tdap) 1996 Hepatitis B Vaccines (1 of 3 - 19+ 3-dose series) 1996 Pap Smear (Ages 21-65) 1998 Mammogram 2017 Colonoscopy 2022 Influenza Vaccine 12/04/2023 02/01/2016, 05/04/2013 COVID-19 Vaccine ( - 2023-2 5 season) 2024 HIV Screening Completed 06/21/2020 Pneumococcal Vaccine: Pediatric (0-5 Years) and At-Risk Patients (6 to 49 Years) Aged Out No longer eligible b ased on patient's age to complete this topic Care Teams Flatwork Finisher Hand Relationship Specialty Start Date End Date Shagufta Salinas PA-C [address] [place] [address] PCP - General Adult Health - STEFF/BERNY/SEBASTIAN/[facility]I 05/11/24
== END 2024-07-29 11:01 | disposition home or self-care (01) ==
LOC: HO.MAMMO 11:00
PROVIDERS: Visit Provider Internal Medicine
DX: Z12.31 Encounter for screening mammogram for malignant neoplasm of breast (principal)
CPT/HCPCS: 77063; 77067

== ENCOUNTER → 2024-07-29 11:00 | Outpatient (BNV) | payer OTHER, SELFPAY | PROVIDERS: Visit Provider Internal Medicine | DX: Z12.31 Encounter for screening mammogram for malignant neoplasm of breast (principal) | CPT/HCPCS: 77063; 77067 ==